=== PATIENT | female | born 1960 | race Caucasian/White ===

== ENCOUNTER 2018-04-06 16:59 | Emergency (ER) | payer OTHER ==
[~2018-04-06] VITALS: Ht 154.9 cm; Wt 67.1 kg
[2018-04-06 17:34] VITALS: BP 133/59
[2018-04-06] MEDS ORDERED: TRAMADOL HCL 50 MG TABLET ONE (18:23)
[2018-04-06] MEDS: TRAMADOL HCL 50 MG TABLET PO ONE (18:31)
== END 2018-04-06 19:37 | disposition home or self-care (01) ==
LOC: ER 17:03
DX: M79.604 Pain in right leg (principal); M54.2 Cervicalgia; M54.6 Pain in thoracic spine; M25.512 Pain in left shoulder; M19.90 Unspecified osteoarthritis, unspecified site; V49.49XA Driver injured in collision with other motor vehicles in traffic accident, initial encounter; Y93.89 Activity, other specified; Y92.413 State road as the place of occurrence of the external cause; Y99.8 Other external cause status
CPT/HCPCS: 73590-TC

== ENCOUNTER 2025-02-06 06:28 | Inpatient (IN) | payer MEDICARE, OTHER ==
[~2025-02-06] VITALS: Ht 154.9 cm; Wt 62.7 kg
[2025-02-06] MEDS ORDERED: CEFAZOLIN 1 GM ONE (07:12)
[2025-02-06] MEDS ORDERED: POLYMYXIN B SULFATE 500,000 UNITS ONE (07:12)
[2025-02-06] MEDS ORDERED: LIDOCAINE 2%-EPI 1:100,000 30 ML VIAL ONE (07:12)
[2025-02-06] MEDS ORDERED: VANCOMYCIN 1 GM VIAL ONE (07:12)
[2025-02-06] MEDS ORDERED: BUPIVACAINE 0.5 % PF 150 MG/30 ML VIAL ONE (07:12)
[2025-02-06] MEDS ORDERED: GENTAMICIN 80 MG/2 ML VIAL ONE (07:12)
[2025-02-06] MEDS ORDERED: dexaMETHasone SOD PHOSPHATE 2 ML ONE (07:12)
[2025-02-06] MEDS ORDERED: OXYMETAZOLINE HCL NASAL SPRAY 30 ML BOTTLE NS ONE (07:12)
[2025-02-06] MEDS ORDERED: ESMOLOL INJ 100 MG/10 ML VIAL IV ONE (07:16)
[2025-02-06] MEDS ORDERED: MIDAZOLAM HCL 2 MG/2ML VIAL ONE (07:16)
[2025-02-06] MEDS ORDERED: FENTANYL PF 100MCG/2ML AMPUL ONE (07:16)
[2025-02-06] MEDS ORDERED: FAMOTIDINE/PF INJ 20 MG/2 ML VIAL IV ONE (07:16)
[2025-02-06] MEDS ORDERED: ROCURONIUM BROMIDE 50 MG/5 ML ONE ×2 (07:16→07:17)
[2025-02-06] MEDS ORDERED: SUGAMMADEX SODIUM 200 MG/2 ML VIAL IV ONE (07:17)
[2025-02-06 11:45] VITALS: BP 137/70; TEMP 98.4; O2SAT 91
[2025-02-06] MEDS ORDERED: PIPERACILLIN /TAZOBACTAM 3.375 G in IV D5W 50 ML IV SCH (12:00)
[2025-02-06] MEDS ORDERED: ONDANSETRON HCL/PF 4 MG/2 ML VIAL IVP PRN (12:00)
[2025-02-06] MEDS ORDERED: HYDROMORPHONE 1 MG/1 ML DISP.SYRIN IV PRN (12:00)
[2025-02-06] MEDS: CHLORHEXIDINE GLUCONATE 15 ML UDC MM SCH (13:00)
[2025-02-06] MEDS ORDERED: CALC-494 PO (15:12)
[2025-02-06] MEDS ORDERED: IBUP-1490 PO (15:12)
[2025-02-06] MEDS ORDERED: LOSA1TAB36 PO (15:12)
[2025-02-06] MEDS ORDERED: MECL-159 PO (15:16)
[2025-02-06 17:00] VITALS: BP_SYST 106; BP_SYST 126; BP_DIAS 63; BP_DIAS 75; O2SAT 100; O2SAT 99
[2025-02-06] MEDS: ZOSYN IVPB 3.375 G in IV D5W 50ml IV SCH (17:28)
[2025-02-06] MEDS: P-EPHED SUL/LORATADINE (24H) 1 TAB.SR.24H PO SCH (17:33)
[2025-02-06] MEDS ORDERED: LOSARTAN/HCTZ 50-12.5MG/ 1 EA TABLET PO PRN (18:00)
[2025-02-06] MEDS ORDERED: MECLIZINE HCL 25 MG TABLET PO PRN (18:00)
[2025-02-06] MEDS: IV NS 0.9% 1,000 ML IV PRN (19:52)
[2025-02-06] MEDS: VANCOMYCIN 1 GM in IV D5W 250ml IV SCH (19:53)
[2025-02-06] MEDS: ACETAMINOPHEN 325 MG TABLET PO PRN (19:54)
[2025-02-06 20:00] VITALS: BP 117/57; TEMP 97.7; O2SAT 93
[2025-02-07 08:00] VITALS: BP 120/54; TEMP 97.7; O2SAT 98
[2025-02-07] MEDS: CALCIUM CARBONATE 500 MG TAB.CHEW PO SCH (08:35)
== END 2025-02-07 11:23 | disposition home or self-care (01) | DRG 141 ==
LOC: DS 06:28 → MED 11:50
PROC: 0NUR07Z Supplement Maxilla with Autologous Tissue Substitute, Open Approach (ICD-10-PCS; 2025-02-06)
PROC: 09UR07Z Supplement Left Maxillary Sinus with Autologous Tissue Substitute, Open Approach (ICD-10-PCS; 2025-02-06)
PROC: 0NBR0ZZ Excision of Maxilla, Open Approach (ICD-10-PCS; 2025-02-06)
PROC: 0NSR04Z Reposition Maxilla with Internal Fixation Device, Open Approach (ICD-10-PCS; principal; 2025-02-06 07:30)
DX: S02.40DB Maxillary fracture, left side, initial encounter for open fracture (principal); K12.2 Cellulitis and abscess of mouth; T81.83XA Persistent postprocedural fistula, initial encounter; S02.40CB Maxillary fracture, right side, initial encounter for open fracture; I10 Essential (primary) hypertension; I34.0 Nonrheumatic mitral (valve) insufficiency; S02.40CK Maxillary fracture, right side, subsequent encounter for fracture with nonunion; D11.9 Benign neoplasm of major salivary gland, unspecified; D16.5 Benign neoplasm of lower jaw bone; X58.XXXD Exposure to other specified factors, subsequent encounter; M27.2 Inflammatory conditions of jaws; J32.0 Chronic maxillary sinusitis; M89.38 Hypertrophy of bone, other site; M84.88 Other disorders of continuity of bone, other site; Y83.8 Other surgical procedures as the cause of abnormal reaction of the patient, or of later complication, without mention of misadventure at the time of the procedure; X58.XXXA Exposure to other specified factors, initial encounter; Y93.9 Activity, unspecified; Y92.009 Unspecified place in unspecified non-institutional (private) residence as the place of occurrence of the external cause; K13.79 Other lesions of oral mucosa
CPT/HCPCS: 88305-TC; 88311-TC; A4223; A4338; C1713; C1781; G0378; J0330; J0690; J1100; J1308; J1580; J2250; J2312; J2405; J2543; J2704; J2765; J3010; J3373; J3490; J7030; J7050; J7060